=== PATIENT | female | born 1990 | race Caucasian/White ===

== ENCOUNTER 2021-04-29 21:30 | Emergency (ER) | payer BC, OTHER ==
[~2021-04-29] VITALS: Ht 160 cm; Wt 62.6 kg
[2021-04-29] MEDS ORDERED: AMOXICILLIN/CLAVULANATE K 875 MG TAB PO STA (22:10)
[2021-04-29] MEDS ORDERED: DIPHTH/TETANUS/ACEL. PERTUSSIS 0.5 ML SYR IM ONE (22:15)
[2021-04-29] MEDS ORDERED: AMOXICILLIN/CLAVULANATE K 875 MG TAB ONE (22:22)
[2021-04-29] MEDS ORDERED: TETANUS/DIPHTHERIA TOX ADULT 0.5 ML SYR ONE (22:22)
[2021-04-29] MEDS ORDERED: AUGMENTIN 875-1 EACH PO (22:33)
[2021-04-29 22:50] VITALS: BP 121/84
== END 2021-04-29 22:50 | disposition home or self-care (01) ==
LOC: FSED 22:00
DX: S60.472A Other superficial bite of right middle finger, initial encounter (principal); W55.01XA Bitten by cat, initial encounter; Y92.89 Other specified places as the place of occurrence of the external cause
CPT/HCPCS: 90471; 90714; 99283

== ENCOUNTER 2024-02-18 12:25 | Emergency (ER) | payer BC, OTHER ==
[~2024-02-18] VITALS: Ht 160 cm; Wt 64.9 kg
[2024-02-18 12:25] VITALS: PULSE 79; RESP 17; TEMP 98.9; O2SAT 100
[~2024-02-18 12:25] MED LIST: AUGMENTIN 875-1 EACH PO; BACTRIM 400-801 EACH PO; METOPROLOL TART50 MG PO; PEPCID20 MG PO; PYRIDIUM100 MG PO
[2024-02-18] MEDS: IBUPROFEN 400 MG TAB PO ONE (14:09)
[2024-02-18] MEDS: TETANUS/DIPHTHERIA TOX ADULT 0.5 ML SYR IM ONE (14:10)
== END 2024-02-18 14:21 | disposition home or self-care (01) ==
LOC: ER 12:29
DX: L03.011 Cellulitis of right finger (principal); W45.0XXA Nail entering through skin, initial encounter; Y92.89 Other specified places as the place of occurrence of the external cause; J45.909 Unspecified asthma, uncomplicated; F41.9 Anxiety disorder, unspecified; F31.9 Bipolar disorder, unspecified
CPT/HCPCS: 71046; 90714; 99283

== ENCOUNTER 2024-12-17 20:36 | Emergency (ER) | payer OTHER ==
[~2024-12-17] VITALS: Ht 160 cm; Wt 61.2 kg
[2024-12-17 20:40] VITALS: PULSE 88; RESP 20; TEMP 98.7; O2SAT 99
[2024-12-17] MEDS ORDERED: DOXYCYCLINE HY100 MG PO (21:07)
[2024-12-17] MEDS ORDERED: HYDROCODONE/APAP 5MG-325MG TAB ONE (21:24)
[2024-12-17] MEDS: FLUORESCEIN SOD(OPTH) 1 MG STRP OP ONE (21:33)
[2024-12-17] MEDS: TETRACAINE HCL 0.5% OPTH SOLN 4 ML BTL OP ONE (21:34)
[2024-12-17] MEDS: HYDROCODONE/APAP 5MG-325MG TAB PO STA (21:35)
[2024-12-17] MEDS ORDERED: OFLOXACIN5 M1 OS (21:37)
[2024-12-17] MEDS ORDERED: ULTRAM 50MG50 MG PO (21:46)
== END 2024-12-17 21:45 | disposition home or self-care (01) ==
LOC: ER 20:44
DX: S05.8X2A Other injuries of left eye and orbit, initial encounter (principal); W55.03XA Scratched by cat, initial encounter; Y92.89 Other specified places as the place of occurrence of the external cause; J45.909 Unspecified asthma, uncomplicated; F31.9 Bipolar disorder, unspecified; F41.9 Anxiety disorder, unspecified
CPT/HCPCS: 99283